=== PATIENT | male | born 1965 | race Caucasian/White ===

== ENCOUNTER 2019-02-02 08:02 | Emergency (ER) | payer SELFPAY ==
[2019-02-02] MEDS ORDERED: NITROGLYCERIN 2% OINTMENT 1 GM PACKET TP ONE (08:36)
[2019-02-02] MEDS ORDERED: ONDANSETRON HCL INJ/PF 4 MG/2 ML SDV IV ONE (08:36)
[2019-02-02 08:40] LABS: ABSOLUTE EOSINOPHILS # (AUTO) 0.3 10^3/uL (0.0-0.6); ABSOLUTE LYMPHOCYTES (AUTO) 1.9 10^3/uL (0.5-4.7); ABSOLUTE MONOCYTES (AUTO) 0.5 10^3/uL (0.1-1.4); ABSOLUTE NEUT (AUTO) 4.4 10^3/uL (1.7-8.2); BASOPHILS % (AUTO) 0.6 % (0-2); EOSINOPHILS % (AUTO) 3.9 % (0-6); HEMATOCRIT 41.4 % (37.9-51.0); HEMOGLOBIN 13.9 g/dL (13.5-17.0); LYMPHOCYTES % (AUTO) 27.2 % (13-45); MEAN CORPUSCULAR HEMOGLOBIN 28.9 pg (27.0-33.4); MEAN CORPUSCULAR HGB CONC 33.6 g/dL (32.0-36.0); MEAN CORPUSCULAR VOLUME 86 fl (80-97); MONOCYTES % (AUTO) 6.8 % (3-13); PLATELET COUNT 178 10^3/uL (150-450); RED BLOOD COUNT 4.83 10^6/uL (4.35-5.55); RED CELL DISTRIBUTION WIDTH 14.1 % (11.5-14.0); SEGMENTED NEUTROPHILS % (AUTO) 61.5 % (42-78); TOTAL CELLS COUNTED % (AUTO) 100 %; WHITE BLOOD COUNT 7.1 10^3/uL (4.0-10.5)
[2019-02-02] MEDS ORDERED: ASPIRIN 81 MG TABLET, CHEWABLE PO ONE (08:42)
[2019-02-02 08:49] LABS: INTERNATIONAL RATION (INR) 0.87; PROTHROMBIN TIME 12.3 SEC (11.4-15.4)
[2019-02-02 09:03] LABS: ALANINE AMINOTRANSFERASE 29 U/L (21-72); ALBUMIN 3.4 g/dL (3.5-5.0); ALKALINE PHOSPHATASE 42 U/L (38-126); ANION GAP 6 (5-19); ASPARTATE AMINO TRANSFERASE 30 U/L (17-59); BILIRUBIN,DIRECT 0.2 mg/dL (0.0-0.4); BILIRUBIN,TOTAL 0.7 mg/dL (0.2-1.3); BLOOD UREA NITROGEN 18 mg/dL (7-20); CALCIUM 8.9 mg/dL (8.4-10.2); CARBON DIOXIDE 29 mmol/L (22-30); CHLORIDE 105 mmol/L (98-107); CREATINE KINASE 330 U/L (55-170); GLUCOSE 104 mg/dL (75-110); POTASSIUM 3.5 mmol/L (3.6-5.0); SODIUM 140.1 mmol/L (137-145); TOTAL PROTEIN 5.7 g/dL (6.3-8.2)
[2019-02-02 09:17] LABS: TROPONIN I < 0.012 ng/mL
--- NOTE | 2019-02-02 09:20 | RADIOLOGY REPORT (SQ) ---
EXAM DESCRIPTION: CHEST 2 VIEWS COMPLETED DATE/TIME: 02/02/2019 8:55 am REASON FOR STUDY: Chest Pain COMPARISON: None. EXAM PARAMETERS: NUMBER OF VIEWS: two views TECHNIQUE: Digital Frontal and Lateral radiographic views of the chest acquired. RADIATION DOSE: NA LIMITATIONS: none FINDINGS: LUNGS AND PLEURA: No opacities, masses or pneumothorax. No pleural effusion. MEDIASTINUM AND HILAR STRUCTURES: No masses or contour abnormalities. HEART AND VASCULAR STRUCTURES: Heart normal size. No evidence for failure. BONES: No acute findings. Old rib fractures. HARDWARE: None in the chest. OTHER: No other significant finding. IMPRESSION: NO ACUTE RADIOGRAPHIC FINDING IN THE CHEST. TECHNICAL DOCUMENTATION: JOB ID: [id number] [employer]- All Rights Reserved Reading location - IP/workstation name: [email or web address]
[2019-02-02] MEDS ORDERED: ACETAMINOPHEN 325 MG TABLET PO ONE (12:04)
--- NOTE | 2019-02-02 13:01 | ER Document Report ---
ED General - General Chief Complaint: Chest Pain Stated Complaint: CHEST PAIN Time Seen by Provider: 02/02/19 08:20 Primary Care Provider: KUSH MARCUS MD [ACTIVE STAFF] - Follow up as needed TRAVEL OUTSIDE OF THE [place] IN LAST 30 DAYS: No - HPI Patient complains to provider of: Chest pain Notes: Patient coming in for evaluation chest pain states chest pain left-sided chest started just prior to arrival. Patient states similar when he had a heart attack in the past. Patient states has 4 stents patient states was recently here in November had a stress test performed that was otherwise negative. Patient states he was told to be placed on nitrates however never had this prescription feels never followed up with cardiology. Denies any fevers chills a slightly nausea with the pain. States some slight diaphoresis. Patient states the pain has improved upon being here however still present. Patient denies any trauma or travel denies any shortness of breath. Patient continues to use tobacco dipping and smoking. - Related Data Allergies/Adverse Reactions: ibuprofen Allergy (Verified 02/02/19 08:08) Past Medical History - Social History Smoking Status: Unknown if Ever Smoked Family History: Reviewed & Not Pertinent Patient has suicidal ideation: No Patient has homicidal ideation: No Renal/ Medical History: Denies: Hx Peritoneal Dialysis Review of Systems - Review of Systems Constitutional: No symptoms reported EENT: No symptoms reported Cardiovascular: Chest pain Respiratory: No symptoms reported Gastrointestinal: No symptoms reported Genitourinary: No symptoms reported Male Genitourinary: No symptoms reported Musculoskeletal: No symptoms reported Skin: No symptoms reported Hematologic/Lymphatic: No symptoms reported Neurological/Psychological: No symptoms reported -: Yes All other systems reviewed and negative Physical Exam - Vital signs Vitals: Temp Pulse Resp BP Pulse Ox 97.8 F 64 18 112/59 L 96 02/02/19 08:12 02/02/19 08:12 02/02/19 08:12 02/02/19 08:12 02/02/19 08:12 Interpretation: Normal - General General appearance: Appears well, Alert - HEENT Head: Normocephalic, Atraumatic Eyes: Normal Pupils: PERRL - Respiratory Respiratory status: No respiratory distress Chest status: Nontender Breath sounds: Normal Chest palpation: Normal - Cardiovascular Rhythm: Regular Heart sounds: Normal auscultation Murmur: No - Abdominal Inspection: Normal Distension: No distension Bowel sounds: Normal Tenderness: Nontender Organomegaly: No organomegaly - Back Back: Normal, Nontender - Extremities General upper extremity: Normal inspection, Nontender, Normal color, Normal ROM, Normal temperature General lower extremity: Normal inspection, Nontender, Normal color, Normal ROM, Normal temperature, Normal weight bearing. No: Syd's sign - Neurological Neuro grossly intact: Yes Cognition: Normal Orientation: AAOx4 Ludwig Coma Scale Eye Opening: Spontaneous Ludwig Coma Scale Verbal: Oriented [place] Coma Scale Motor: Obeys Commands Ludwig Coma Scale Total: 15 Speech: Normal Motor strength normal: LUE, RUE, LLE, RLE Sensory: Normal - Psychological Associated symptoms: Normal affect, Normal mood - Skin Skin Temperature: Warm Skin Moisture: Dry Skin Color: Normal Course - Re-evaluation Re-evalutation: 02/02/19 14:14 Patient adamant about not staying here in hospital. Does agreed to troponins. Did consult with Dr. Marcus cardiology that saw the patient while here in the hospital. Agrees discharged on Imdur as troponins are negative. Second troponin is negative patient again adamant about not staying in the hospital agrees with Imdur agrees to follow-up with Dr. Ho in the next 24 to 48 hours. - Vital Signs Vital signs: Temp Pulse Resp BP Pulse Ox 98.3 F 61 19 101/65 95 02/02/19 13:29 02/02/19 09:14 02/02/19 13:01 02/02/19 13:01 02/02/19 13:01 - Laboratory Result Diagrams: 02/02/19 08:30 02/02/19 08:30 Laboratory results interpreted by me: 02/02/19 02/02/19 02/02/19 08:30 08:30 08:30 RDW 14.1 H Potassium 3.5 L Creatine Kinase 330 H CK-MB (CK-2) 4.60 H Total Protein 5.7 L Albumin 3.4 L Discharge - Discharge Clinical Impression: Chest pain Qualifiers: Chest pain type: unspecified Qualified Code(s): R07.9 - Chest pain, unspecified Condition: Good Disposition: HOME, SELF-CARE Instructions: Aspirin (Cardiac) (OM), Chest Pain of Unclear Cause (OM), Nitrates (OM) Additional Instructions: At this time you have declined admission to the hospital. I have repeat your cardiac enzymes they are negative x2. At this time do not have a clear etiology for your chest pain. It is very important that you follow-up with the furniture manager listed. I did discuss your case with Dr. Marcus please follow- up with him in the next 24 to 48 hours. We will start you on a new medication called him during which is a long acting nitroglycerin. Return to the ER if symptoms worsen. Prescriptions: Isosorbide Mononitrate [Imdur 30 mg Tablet.er] 30 mg PO DAILY #30 tab.er.24h Forms: Smoking Cessation Education, Return to Work Referrals: KUSH MARCUS MD [ACTIVE STAFF] - Follow up as needed
[2019-02-02 13:24] VITALS: BP 101/65
--- NOTE | 2019-02-02 23:17 | EKG REPORT ---
SEVERITY:- ABNORMAL ECG - SINUS RHYTHM LVH WITH SECONDARY REPOLARIZATION ABNORMALITY ANTERIOR Q WAVES, POSSIBLY DUE TO LVH : Confirmed by: René Virgen 02-Feb-2019 23:16:35
== END 2019-02-02 13:30 | disposition home or self-care (01) ==
LOC: ER 08:02
DX: R07.9 Chest pain, unspecified (principal); R61 Generalized hyperhidrosis; I25.2 Old myocardial infarction; F17.200 Nicotine dependence, unspecified, uncomplicated; Z88.8 Allergy status to other drugs, medicaments and biological substances
CPT/HCPCS: 93005; 99285; 36415; 82553; 82550; 85025; 85610; 80053; 84484; 71046; 93010; J2405

== ENCOUNTER 2019-04-07 09:56 | Emergency (ER) | payer SELFPAY ==
[2019-04-07 10:00] VITALS: BP 125/80
--- NOTE | 2019-04-07 12:54 | ER Document Report ---
ED Eye Complaint - General Chief Complaint: Eye Pain Stated Complaint: RIGHT EYE INJURY Time Seen by Provider: 04/07/19 11:02 Primary Care Provider: EL MCCAULEY DO [ACTIVE STAFF] - 04/07/19 3:00 pm Notes: 53-year-old male presents to the emergency department with chief complaint of right eye pain. Patient states that he got a sliver of wood or some sawdust in his eye yesterday at 2 PM and he irrigated and rinsed his eye out and thinks that he either retained the word or he scratched his eye removing it. Patient complains of significant pain and photophobia, complains of swelling of his eye. Patient states that he is unable to open his eye due to the swelling. Patient does complain of some blurred vision. Denies excessive tearing, denies abnormal discharge. Patient is able to move his eye extraocular movements are intact. No other complaints TRAVEL OUTSIDE OF THE [place] IN LAST 30 DAYS: No - Related Data Allergies/Adverse Reactions: ibuprofen Allergy (Verified 04/07/19 09:57) Past Medical History - Social History Smoking Status: Never Smoker Chew tobacco use (# tins/day): Yes Frequency of alcohol use: None Drug Abuse: None Family History: Reviewed & Not Pertinent Patient has suicidal ideation: No Patient has homicidal ideation: No - Past Medical History Cardiac Medical History: Reports: Hx Heart Attack Renal/ Medical History: Denies: Hx Peritoneal Dialysis Past Surgical History: Reports: Hx Cardiac Catheterization, Hx Cardiac Surgery - stents x5 Review of Systems - Review of Systems Constitutional: No symptoms reported EENT: See HPI Cardiovascular: No symptoms reported Respiratory: No symptoms reported Gastrointestinal: No symptoms reported Genitourinary: No symptoms reported Male Genitourinary: No symptoms reported Musculoskeletal: No symptoms reported Skin: No symptoms reported Hematologic/Lymphatic: No symptoms reported Neurological/Psychological: No symptoms reported Physical Exam - Vital signs Vitals: Temp Pulse Resp BP Pulse Ox 97.9 F 59 L 20 125/80 94 04/07/19 10:00 04/07/19 10:00 04/07/19 10:00 04/07/19 10:04/07/19 10:00 - Notes Notes: PHYSICAL EXAMINATION: Reviewed vital signs and charting by RN GENERAL: Alert, interacts well. No acute distress. HEAD: Normocephalic, atraumatic. EYES: Pupils equal and round, reactive to light, there does appear to be inflammation of the right globe and sclera with surrounding periorbital edema ENT: Oral mucosa moist, tongue midline. NECK: Full range of motion. Trachea midline. EXTREMITIES: Moves all 4 extremities spontaneously. No edema, No cyanosis. PSYCH: Normal affect, normal mood. SKIN: Warm, dry, normal turgor. No rashes or lesions noted. Course - Re-evaluation Re-evalutation: 04/07/19 12:54 Patient in mild distress and nontoxic-appearing. Slit-lamp exam performed with floor seen stain and there was no obvious uptake but there was significant scleral edema. Visual acuity is pending. We do not have a Bhanu-Pen that is functioning in the emergency department to obtain intraocular pressure. 04/07/19 13:[address] Mccauley customer technical services manager on-call who wants us to send him over to the office for exam. 04/07/19 19:58 I spoke with patient who stated he was having difficulty obtaining a ride to the office. I explained to him that we are concerned about his eyesight, a vital signs, and he implored him to find one. He said that he made some calls and he was able to probably get a ride over to the office. I directed him again to go directly to the customer technical services manager office per his request. Patient agreed and is being discharged here directly to the customer technical services manager's office. - Vital Signs Vital signs: Temp Pulse Resp BP Pulse Ox 97.9 F 59 L 20 125/80 94 04/07/19 10:00 04/07/19 10:00 04/07/19 10:00 04/07/19 10:00 04/07/19 10:00 Discharge - Discharge Clinical Impression: Acute right eye pain, Swelling of eye, right Condition: Good Disposition: OTHER Instructions: Eye Injury ([facility]) Additional Instructions: Please go to the customer technical services manager office immediately after leaving here for a more comprehensive exam. Referrals: EL MCCAULEY DO [ACTIVE STAFF] - 04/07/19 3:00 pm
== END 2019-04-07 14:15 | disposition other institution (70) ==
LOC: ER 09:56
DX: H57.11 Ocular pain, right eye (principal); H57.89 Other specified disorders of eye and adnexa; W22.8XXA Striking against or struck by other objects, initial encounter
CPT/HCPCS: 99283

== ENCOUNTER 2019-10-03 17:04 | Emergency (ER) | payer SELFPAY ==
--- NOTE | 2019-10-03 18:09 | ER Document Report ---
ED Medical Screen (RME) - General Stated Complaint: COUGH/DIZZYNESS/VOMITING Time Seen by Provider: 10/03/19 18:04 Mode of Arrival: Ambulatory Information source: Patient Notes: She presents complaining of cough with chills for the past 5 days. Patient states that he has felt faint at times. Patient reports headache. Patient complains of shortness of breath and nausea. Patient vomited yesterday. Patient reports mild chest discomfort. hx: Hypertension, CAD, stents x4 I have greeted and performed a rapid initial assessment of this patient. A comprehensive ED assessment and evaluation of the patient, analysis of test results and completion of the medical decision making process will be conducted by additional ED providers. TRAVEL OUTSIDE OF THE [place] IN LAST 30 DAYS: No - Related Data Allergies/Adverse Reactions: ibuprofen Allergy (Verified 10/03/19 18:00) Past Medical History - Past Medical History Cardiac Medical History: Reports: Hx Heart Attack Renal/ Medical History: Denies: Hx Peritoneal Dialysis Past Surgical History: Reports: Hx Cardiac Catheterization, Hx Cardiac Surgery - stents x5 Physical Exam - Vital signs Vitals: Temp Pulse Resp BP Pulse Ox 98.6 F 88 22 H 154/88 H 94 10/03/19 17:13 10/03/19 17:13 10/03/19 17:13 10/03/19 17:13 10/03/19 17:13 - Respiratory Respiratory status: No respiratory distress Chest status: Pain with cough Breath sounds: Nonproductive cough Course - Vital Signs Vital signs: Temp Pulse Resp BP Pulse Ox 98.6 F 88 22 H 154/88 H 94 10/03/19 17:13 10/03/19 17:13 10/03/19 17:13 10/03/19 17:13 10/03/19 17:13
--- NOTE | 2019-10-03 19:04 | RADIOLOGY REPORT (SQ) ---
EXAM DESCRIPTION: CHEST 2 VIEWS COMPLETED DATE/TIME: 10/03/2019 6:52 pm REASON FOR STUDY: cough COMPARISON: Chest radiographs 02/02/2019 EXAM PARAMETERS: NUMBER OF VIEWS: two views TECHNIQUE: Digital Frontal and Lateral radiographic views of the chest acquired. RADIATION DOSE: NA LIMITATIONS: none FINDINGS: LUNGS AND PLEURA: No opacities, masses or pneumothorax. No pleural effusion. MEDIASTINUM AND HILAR STRUCTURES: No masses or contour abnormalities. HEART AND VASCULAR STRUCTURES: Heart normal size. No evidence for failure. BONES: No acute findings. HARDWARE: None in the chest. OTHER: No other significant finding. IMPRESSION: NO ACUTE RADIOGRAPHIC FINDING IN THE CHEST. TECHNICAL DOCUMENTATION: JOB ID: [id number] 2010 [employer]- All Rights Reserved Reading location - IP/workstation name: [email or web address]
[2019-10-03 19:31] LABS: ABSOLUTE BASOPHILS # (AUTO) 0.1 10^3/uL (0.0-0.2); ABSOLUTE EOSINOPHILS # (AUTO) 0.1 10^3/uL (0.0-0.6); ABSOLUTE LYMPHOCYTES (AUTO) 2.4 10^3/uL (0.5-4.7); ABSOLUTE MONOCYTES (AUTO) 0.7 10^3/uL (0.1-1.4); ABSOLUTE NEUT (AUTO) 6.2 10^3/uL (1.7-8.2); BASOPHILS % (AUTO) 0.6 % (0-2); EOSINOPHILS % (AUTO) 1.5 % (0-6); HEMATOCRIT 50.4 % (37.9-51.0); HEMOGLOBIN 17.2 g/dL (13.5-17.0); LYMPHOCYTES % (AUTO) 25.4 % (13-45); MEAN CORPUSCULAR HEMOGLOBIN 28.9 pg (27.0-33.4); MEAN CORPUSCULAR HGB CONC 34.1 g/dL (32.0-36.0); MEAN CORPUSCULAR VOLUME 85 fl (80-97); PLATELET COUNT 234 10^3/uL (150-450); RED BLOOD COUNT 5.95 10^6/uL (4.35-5.55); RED CELL DISTRIBUTION WIDTH 14.4 % (11.5-14.0); SEGMENTED NEUTROPHILS % (AUTO) 65.5 % (42-78); TOTAL CELLS COUNTED % (AUTO) 100 %; WHITE BLOOD COUNT 9.5 10^3/uL (4.0-10.5)
[2019-10-03 19:44] LABS: INTERNATIONAL RATION (INR) 0.87; PROTHROMBIN TIME 11.8 SEC (11.4-15.4)
[2019-10-03 19:51] LABS: ALBUMIN 4.8 g/dL (3.5-5.0); ALKALINE PHOSPHATASE 57 U/L (38-126); ANION GAP 9 (5-19); ASPARTATE AMINO TRANSFERASE 36 U/L (17-59); BILIRUBIN,DIRECT 0.3 mg/dL (0.0-0.4); BILIRUBIN,TOTAL 0.7 mg/dL (0.2-1.3); BLOOD UREA NITROGEN 16 mg/dL (7-20); CALCIUM 10.3 mg/dL (8.4-10.2); CARBON DIOXIDE 30 mmol/L (22-30); CHLORIDE 101 mmol/L (98-107); GLUCOSE 108 mg/dL (75-110); POTASSIUM 4.6 mmol/L (3.6-5.0)
[2019-10-03 20:10] LABS: TROPONIN I 0.03 ng/mL
[2019-10-03 22:20] VITALS: BP 111/53
--- NOTE | 2019-10-03 23:14 | EKG REPORT ---
SEVERITY:- ABNORMAL ECG - SINUS RHYTHM LVH WITH SECONDARY REPOLARIZATION ABNORMALITY : Confirmed by: René Virgen 03-Oct-2019 23:13:48
[2019-10-04] MEDS ORDERED: AZITHROMYCIN 250 MG TABLET PO ONE (00:46)
--- NOTE | 2019-10-04 00:51 | ER Document Report ---
ED Flu Like - General Chief Complaint: Flu Symptoms Stated Complaint: COUGH/DIZZYNESS/VOMITING Time Seen by Provider: 10/03/19 18:04 Mode of Arrival: Ambulatory Notes: Patient is a 54-year-old male that comes to the emergency department for chief complaint of cough, chills, and some sinus congestion for the past 5 days. He states both of his kids had viral illnesses and he thinks they got him sick. He states he came in because he has not gotten over this yet and he feels too strong up to go back to work yet. He reports intermittent headaches, has felt lightheaded at times but he denies difficulty breathing when he is not coughing and he denies particular chest pain outside of cough. He vomited yesterday once but has not vomited since and he is able to eat. He has not had the influenza vaccine. He does not smoke. He has a history of hypertension, CAD, cardiac stents x4. TRAVEL OUTSIDE OF THE [place] IN LAST 30 DAYS: No - Related Data Allergies/Adverse Reactions: ibuprofen Allergy (Verified 10/03/19 18:00) Past Medical History - General Information source: Patient - Social History Smoking Status: Never Smoker Chew tobacco use (# tins/day): No Frequency of alcohol use: Rare Drug Abuse: None Lives with: Family Family History: Reviewed & Not Pertinent Patient has suicidal ideation: No Patient has homicidal ideation: No - Past Medical History Cardiac Medical History: Reports: Hx Heart Attack Renal/ Medical History: Denies: Hx Peritoneal Dialysis Past Surgical History: Reports: Hx Cardiac Catheterization, Hx Cardiac Surgery - stents x5 - Immunizations Immunizations up to date: Yes Hx Diphtheria, Pertussis, Tetanus Vaccination: Yes Review of Systems - Review of Systems Constitutional: See HPI EENT: See HPI Cardiovascular: No symptoms reported Respiratory: See HPI Gastrointestinal: No symptoms reported Genitourinary: No symptoms reported Male Genitourinary: No symptoms reported Musculoskeletal: No symptoms reported Skin: No symptoms reported Hematologic/Lymphatic: No symptoms reported Neurological/Psychological: No symptoms reported Physical Exam - Vital signs Vitals: Temp Pulse Resp BP Pulse Ox 98.6 F 88 22 H 154/88 H 94 10/03/19 17:13 10/03/19 17:13 10/03/19 17:13 10/03/19 17:13 10/03/19 17:13 - Notes Notes: GENERAL: Alert, interacts well. No acute distress. HEAD: Normocephalic, atraumatic. EYES: Pupils equal, round, and reactive to light. Extraocular movements intact. ENT: Oral mucosa moist, tongue midline. Oropharynx unremarkable. Airway patent. Sinus congestion, no nasal septal hematoma, TM's intact. NECK: Full range of motion. Supple. Trachea midline. LUNGS: Clear to auscultation bilaterally, no wheezes, rales, or rhonchi. No respiratory distress. Occasional congested cough HEART: Regular rate and rhythm. No murmur ABDOMEN: Soft, non-tender. Non-distended. EXTREMITIES: Moves all 4 extremities spontaneously. No edema, normal radial and dorsalis pedis pulses bilaterally. No cyanosis. BACK: no cervical, thoracic, lumbar midline tenderness. No saddle anesthesia, normal distal neurovascular exam. Moves all extremities in full range of motion. NEUROLOGICAL: Alert and oriented x3. Normal speech. Cranial nerves II through XII grossly intact. PSYCH: Slightly irritable SKIN: Warm, dry, normal turgor. No rashes or lesions noted. Course - Re-evaluation Re-evalutation: On my exam patient is already standing in the room and requesting to leave. I did speak to him, interview him, and he did allow me to examine him. He does have a productive cough and he states he is having chills over the past couple of days. His chest x-ray looks clear, his troponin is below cutoff and patient denies any chest pain, CBC, chemistry nonspecific. Patient also has some sinus congestion. Patient is requesting coverage with antibiotics and discharge. He is also requesting work release. Because of patient's productive cough, chills, and symptoms after 5 days decision was made to give him a dose of azithromycin and a prescription for this as well, patient states he does not have insurance yet. Patient is also requesting referral to cardiology and primary care. Patient states he will come back if he worsens in any way, discussed this in detail, patient states understanding and agreement. Stable at time of discharge. - Vital Signs Vital signs: Temp Pulse Resp BP Pulse Ox 98.0 F 67 20 111/53 L 95 10/03/19 22:19 10/03/19 22:19 10/03/19 22:19 10/03/19 22:19 10/03/19 22:19 - Laboratory Result Diagrams: 10/03/19 19:10 10/03/19 19:10 Laboratory results interpreted by me: 10/03/19 10/03/19 10/03/19 19:10 19:10 19:10 RBC 5.95 H Hgb 17.2 H RDW 14.4 H Calcium 10.3 H ALT 53 H NT-Pro-B Natriuret Pep 261 H - EKG Interpretation by Me Additional EKG results interpreted by me: EKG shows sinus rhythm at a rate of 71, QTC of 448, left axis deviation. No T wave inversions or ST segment changes in consecutive leads Discharge - Discharge Clinical Impression: Productive cough, Chills Upper respiratory infection Qualifiers: URI type: unspecified URI Qualified Code(s): J06.9 - Acute upper respiratory infection, unspecified Condition: Stable Disposition: HOME, SELF-CARE Additional Instructions: Your work-up is reassuring, your evaluation is most consistent with bronchitis, we are treating you to prevent possible underlying developing pneumonia because of your chills and productive cough. Rest, drink plenty fluids, take Tylenol for chills and body aches. Follow-up closely with the primary care referral listed below ([facility]). You have also been referred to a local loader operator supervisor (Dr. Knight). He has been given an additional primary care option as requested (Dr. Price). Return if you worsen including difficulty breathing, spiking fevers, or any other concerning or worsening symptoms. Prescriptions: Azithromycin [Zithromax 250 mg Tablet] 250 mg PO ASDIR PRN #4 tablet PRN Reason: Forms: Return to Work
== END 2019-10-04 01:02 | disposition home or self-care (01) ==
LOC: ER 17:04
DX: J06.9 Acute upper respiratory infection, unspecified (principal); R05 Cough; R68.83 Chills (without fever); R42 Dizziness and giddiness; R09.81 Nasal congestion; R51 Headache; R11.10 Vomiting, unspecified; I10 Essential (primary) hypertension; I25.10 Atherosclerotic heart disease of native coronary artery without angina pectoris
CPT/HCPCS: 36415; 71046; 80053; 83880; 84484; 85025; 85610; 93005; 93010; 99284